=== PATIENT | female | born 1960 | race Caucasian/White ===

== ENCOUNTER 2016-05-21 09:57 | Emergency (ER) | payer MEDICAID, OTHER ==
--- NOTE | 2016-05-21 11:26 | RAD ---
HISTORY: Trauma the fifth MCP 2 days ago. Initial encounter. COMPARISON: None TECHNIQUE: Three views of the right hand FINDINGS: Bones: No fracture or dislocation. Joints: Unremarkable. Soft tissue: Normal. IMPRESSION: No fracture or dislocation.
== END 2016-05-21 12:00 | disposition home or self-care (01) ==
LOC: ED 09:57
DX: S60.221A Contusion of right hand, initial encounter (principal); W23.0XXA Caught, crushed, jammed, or pinched between moving objects, initial encounter; Y92.9 Unspecified place or not applicable